=== PATIENT | female | born 1950 | race Caucasian/White ===

== ENCOUNTER 2017-11-07 22:03 | Inpatient (IN) | payer OTHER ==
[~2017-11-07] VITALS: Ht 167.6 cm; Wt 121.4 kg
[~2017-11-07 22:03] MED LIST: ADVAIR 250/501 DISK IH; ALPRAZOLAM0.25 M2 PO; ASCORBIC ACID500 M3 PO; ASPIRIN81 M2 PO; COZAAR100 MG PO; DICLOFENAC SODI75 MG PO; ENDOCET 5-3251 EACH PO; FERREX 150150 MG PO; FOLIC ACID1 MG PO; HYDROCHLOROTHIA25 MG PO; HYDROCODON-ACE1 EAC7 PO; IMDUR30 MG PO; IRON325 M1 PO; LEXAPRO20 MG PO; LIOTHYRONINE SO5 MCG PO; LIPITOR80 MG PO; LOPRESSOR50 MG PO; LOSARTAN POTASS25 MG PO; LOVENOX40 MG/0.4 SC; PRILOSEC40 MG PO; PROAIR HFA8.5 GM IH; PROTONIX40 MG PO; PROVENTIL HFA6.7 GM IH; SENNA-TIME S T1 EACH PO; SINGULAIR10 MG PO; SYNTHROID112 MCG PO; THERAGRAN1 TABLET PO; Tums,OsCal PO; VALSARTAN-HCTZ1 EAC1 PO; VITAMIN C500 M6 PO; VITAMIN D2000 UNIT PO; VOLTAREN50 MG PO; VOLTAREN75 MG PO
[2017-11-08 07:44] VITALS: BP 112/57
[2017-11-08 07:53] LABS: HEMATOCRIT 41.3 % (36.0-46.0); HEMOGLOBIN 13.4 G/DL (11.9-15.5); MCH 28.4 PG (29.0-34.0); MCHC 32.4 G/DL (30.0-36.0); MCV 87.5 FL (83-99); PLATELET COUNT 297 K/uL (156-360); RBC DIS.WIDTH-CV 14.3 % (11.8-14.6); RBC DIS.WIDTH-SD 45.8 % (39-53); RED BLOOD COUNT 4.72 M/uL (3.80-5.20); WHITE BLOOD COUNT 13.6 K/uL (4.1-10.2)
[2017-11-08 12:26] LABS: HEMATOCRIT 41.4 % (36.0-46.0); HEMOGLOBIN 13.2 G/DL (11.9-15.5); MCH 28.1 PG (29.0-34.0); MCHC 31.9 G/DL (30.0-36.0); MCV 88.1 FL (83-99); PLATELET COUNT 290 K/uL (156-360); RBC DIS.WIDTH-CV 14.2 % (11.8-14.6)
[2017-11-08 13:45] VITALS: BP 148/70
[2017-11-08 15:36] VITALS: BP 181/72
[2017-11-08 20:07] VITALS: BP 155/70
[2017-11-09] VITALS: BP 154/67
[2017-11-09 04:17] VITALS: BP 137/70
[2017-11-09 06:20] LABS: HEMATOCRIT 38.7 % (36.0-46.0); HEMOGLOBIN 12.2 G/DL (11.9-15.5); MCV 88.6 FL (83-99)
[2017-11-09 06:53] LABS: CHLORIDE 96 MEQ/L (99-109); CREATININE 0.7 MG/DL (0.6-1.3); GFR ESTIMATE (CALCULATED) > 59 mL/min/; GLUCOSE 147 mg/dL (70-99); POTASSIUM 3.9 MEQ/L (3.7-5.4); UREA NITROGEN (BUN) 23 mg/dL (9-23)
[2017-11-09 06:57] LABS: SODIUM 134 MEQ/L (136-147)
[2017-11-09 08:00] VITALS: BP 145/65
[2017-11-09 16:15] VITALS: BP 130/59
[2017-11-09 20:09] VITALS: BP 111/56
[2017-11-10 00:07] VITALS: BP 147/65
[2017-11-10 04:00] VITALS: BP 142/66
[2017-11-10 05:32] LABS: HEMATOCRIT 34.8 % (36.0-46.0); HEMOGLOBIN 11.4 G/DL (11.9-15.5)
[2017-11-10 05:56] LABS: CHLORIDE 96 MEQ/L (99-109); GFR ESTIMATE (CALCULATED) 59 mL/min/; GLUCOSE 143 mg/dL (70-99); POTASSIUM 4.3 MEQ/L (3.7-5.4); SODIUM 133 MEQ/L (136-147); UREA NITROGEN (BUN) 27 mg/dL (9-23)
[2017-11-10 08:09] VITALS: BP 159/69
[2017-11-10] MEDS ORDERED: LOVENOX40 MG/0.4 SC (11:17)
[2017-11-10] MEDS ORDERED: ENDOCET 5-3251 EACH PO (11:17)
[2017-11-10 12:06] VITALS: BP 129/59
[2017-11-10] MEDS ORDERED: SENOKOT S,PE1 TABLET PO (17:37)
[2017-11-10] MEDS ORDERED: CELEBREX200 MG PO (17:37)
== END 2017-11-10 16:47 | DRG 470 ==
LOC: ENRESERV 22:03 → 2SOUTH 11-08 06:54 → 3WEST 11-08 13:10
PROVIDERS: Orthopaedic Surgery; Physician Assistant
PROC: 0SRD0J9 Replacement of Left Knee Joint with Synthetic Substitute, Cemented, Open Approach (ICD-10-PCS; principal; 2017-11-08)
DX: M17.12 Unilateral primary osteoarthritis, left knee (principal); G89.18 Other acute postprocedural pain; I10 Essential (primary) hypertension; J45.909 Unspecified asthma, uncomplicated; E78.00 Pure hypercholesterolemia, unspecified; E03.9 Hypothyroidism, unspecified; I25.2 Old myocardial infarction; K21.9 Gastro-esophageal reflux disease without esophagitis; G47.30 Sleep apnea, unspecified; Z96.641 Presence of right artificial hip joint; Z95.5 Presence of coronary angioplasty implant and graft; Z79.82 Long term (current) use of aspirin
CPT/HCPCS: 73560; 80048; 85014; 85018; 85027; 94640; 94640 76; 94760; 94799; 99202; C1713; J0131; J0330; J0690; J1100; J1170; J1650; J2250; J2405; J2710; J2765; J2795; J3010; J7050

== ENCOUNTER 2017-11-10 15:06 | Inpatient (IN) | payer OTHER ==
[~2017-11-10] VITALS: Ht 167.6 cm; Wt 124.6 kg
[2017-11-10 17:05] VITALS: BP 128/60
[2017-11-10] MEDS ORDERED: SENOKOT S,PE1 TABLET PO (17:37)
[2017-11-10] MEDS ORDERED: CELEBREX200 MG PO (17:37)
[2017-11-11 04:54] VITALS: BP 105/51
[2017-11-11 06:13] LABS: HEMATOCRIT 35.3 % (36.0-46.0); HEMOGLOBIN 11.8 G/DL (11.9-15.5); MCH 28.6 PG (29.0-34.0); MCHC 33.4 G/DL (30.0-36.0); MCV 85.7 FL (83-99); PLATELET COUNT 262 K/uL (156-360); RBC DIS.WIDTH-CV 14.2 % (11.8-14.6); RBC DIS.WIDTH-SD 44.9 % (39-53); RED BLOOD COUNT 4.12 M/uL (3.80-5.20); WHITE BLOOD COUNT 13.8 K/uL (4.1-10.2)
[2017-11-11 06:22] LABS: ALBUMIN 3.1 G/DL (3.2-4.8); ALKALINE PHOSPHATASE 84 IU/L (3-129); ALT (GPT) 10 IU/L (3-49); AST (GOT) 11 IU/L (2-34); CHLORIDE 99 MEQ/L (99-109); CREATININE 0.8 MG/DL (0.6-1.3); GFR ESTIMATE (CALCULATED) > 59 mL/min/; GLUCOSE 132 mg/dL (70-99); POTASSIUM 3.7 MEQ/L (3.7-5.4); SODIUM 137 MEQ/L (136-147); TOTAL BILIRUBIN 0.9 MG/DL (0.0-1.0); TOTAL PROTEIN 5.6 G/DL (6.4-8.3); UREA NITROGEN (BUN) 19 mg/dL (9-23)
[2017-11-11 15:22] VITALS: BP 107/52
[2017-11-12 05:58] VITALS: BP 149/64
[2017-11-12 15:00] VITALS: BP 119/56
[2017-11-13 04:21] VITALS: BP 133/67
[2017-11-13 15:51] VITALS: BP 151/67
[2017-11-14 05:30] VITALS: BP 151/70
[2017-11-14 17:02] VITALS: BP 142/60
[2017-11-15 06:01] VITALS: BP 112/62
[2017-11-15 15:25] VITALS: BP 129/60
[2017-11-16 06:06] VITALS: BP 118/67
[2017-11-16 07:03] LABS: HEMATOCRIT 35.7 % (36.0-46.0); HEMOGLOBIN 11.5 G/DL (11.9-15.5); MCH 28.4 PG (29.0-34.0); MCHC 32.2 G/DL (30.0-36.0); MCV 88.1 FL (83-99); PLATELET COUNT 336 K/uL (156-360); RBC DIS.WIDTH-CV 14.6 % (11.8-14.6); RBC DIS.WIDTH-SD 47.2 % (39-53); RED BLOOD COUNT 4.05 M/uL (3.80-5.20); WHITE BLOOD COUNT 13.6 K/uL (4.1-10.2)
[2017-11-16 07:19] LABS: ALBUMIN 3.1 G/DL (3.2-4.8); ALKALINE PHOSPHATASE 92 IU/L (3-129); ALT (GPT) 16 IU/L (3-49); AST (GOT) 16 IU/L (2-34); CHLORIDE 96 MEQ/L (99-109); CREATININE 0.9 MG/DL (0.6-1.3); GFR ESTIMATE (CALCULATED) > 59 mL/min/; GLUCOSE 113 mg/dL (70-99); POTASSIUM 4.2 MEQ/L (3.7-5.4); SODIUM 138 MEQ/L (136-147); TOTAL BILIRUBIN 0.7 MG/DL (0.0-1.0); TOTAL PROTEIN 5.7 G/DL (6.4-8.3); UREA NITROGEN (BUN) 27 mg/dL (9-23)
[2017-11-16 15:18] VITALS: BP 93/50
[2017-11-16] MEDS ORDERED: DOCUSATE SODIU100 MG PO (22:20)
[2017-11-16] MEDS ORDERED: CELEBREX200 MG PO (22:20)
[2017-11-16] MEDS ORDERED: POLYETHYLENE GL17 GM PO (22:20)
[2017-11-17 05:17] VITALS: BP 138/66
[2017-11-17 06:20] LABS: HEMOGLOBIN 11.5 G/DL (11.9-15.5); MCH 28.3 PG (29.0-34.0); MCHC 31.9 G/DL (30.0-36.0); MCV 88.5 FL (83-99); PLATELET COUNT 349 K/uL (156-360); RBC DIS.WIDTH-CV 14.5 % (11.8-14.6); RBC DIS.WIDTH-SD 46.8 % (39-53); RED BLOOD COUNT 4.07 M/uL (3.80-5.20); WHITE BLOOD COUNT 13.2 K/uL (4.1-10.2)
== END 2017-11-17 11:41 | disposition home health service (06) | DRG 560 ==
LOC: 3WEST 15:06 → ENPENDDIS 11-17 → 3WEST 11-17 11:41
PROVIDERS: Physical Medicine & Rehabilitation Pain Medicine
PROC: F07M0ZZ Range of Motion and Joint Mobility Treatment of Musculoskeletal System - Whole Body (ICD-10-PCS; principal; 2017-11-10)
DX: Z47.1 Aftercare following joint replacement surgery (principal); M17.12 Unilateral primary osteoarthritis, left knee; Z96.652 Presence of left artificial knee joint; R26.9 Unspecified abnormalities of gait and mobility; G89.18 Other acute postprocedural pain; J45.909 Unspecified asthma, uncomplicated; R73.03 Prediabetes; F41.9 Anxiety disorder, unspecified; E87.1 Hypo-osmolality and hyponatremia; I10 Essential (primary) hypertension; Z74.09 Other reduced mobility; E66.09 Other obesity due to excess calories; E03.9 Hypothyroidism, unspecified; R10.13 Epigastric pain; D62 Acute posthemorrhagic anemia; D72.829 Elevated white blood cell count, unspecified; Z96.641 Presence of right artificial hip joint; Z68.41 Body mass index [BMI] 40.0-44.9, adult; Z95.5 Presence of coronary angioplasty implant and graft
CPT/HCPCS: 80053; 85027; 94640; 94640 76; 97110 GO; 97530 GP; 99202; J1650